=== PATIENT | female | born 1965 | race Caucasian/White ===

== ENCOUNTER → 2018-10-25 | Outpatient (CLI) | payer OTHER ==
[~2018-10-25] MED LIST: ACETAMINOPHEN650 M5 PO; COLACE100 MG PO; FIORICET 50-321 EACH PO; HYDROCODONE-AP1 EAC6 PO; MECLIZINE 25 MG25 M1 PO; NORCO 5-325 TA1 EACH PO; ONDANSETRON HCL4 M2 PO; ZOFRAN 4 MG ORAL4 M1 DIS
[2018-10-25 12:00] LABS: ABSOLUTE EOSINOPHILS 0.1 thou/uL (0.0-0.7); ABSOLUTE LYMPHOCYTES 2.3 thou/uL (0.8-5.3); ABSOLUTE MONOCYTES 0.3 thou/uL (0.0-1.2); ABSOLUTE NEUTROPHILS 2.5 thou/uL (1.6-8.1); BASOPHILS 0.5 %; EOSINOPHILS 2.7 %; HEMATOCRIT 37.7 % (37.0-47.0); HEMOGLOBIN 12.6 gm/dL (12.0-15.0); LYMPHOCYTES 43.3 %; MCH 29.7 pg (26.0-34.0); MCHC 33.5 g/dL (28.0-37.0); MCV 88.8 fL (80.0-100.0); MONOCYTES 5.6 %; MPV 7.6 fl. (7.2-11.1); NUCLEATED RBCS 0 /100WBC; PLATELET COUNT* 282 thou/uL (150-400); POLYS 47.9 %; RBC 4.24 mil/uL (4.20-5.00); RDW-CV 13.6 % (10.5-14.5); WBC 5.2 thou/uL (4.0-11.0)
[2018-10-25 12:21] LABS: ALBUMIN 3.6 g/dL (3.4-5.0); CALCIUM 8.7 mg/dL (8.5-10.1); CREATININE 0.6 mg/dL (0.6-1.3); POTASSIUM 4.1 mmol/L (3.5-5.1); TOTAL BILIRUBIN 0.4 mg/dL (<0.1-1.0); TOTAL PROTEIN 7.9 g/dL (6.4-8.2)
== END ==
LOC: M.LAB 11:31
PROVIDERS: Internal Medicine Gastroenterology
DX: D64.9 Anemia, unspecified (principal); R94.5 Abnormal results of liver function studies